=== PATIENT | female | born 2005 | race Caucasian/White ===

== ENCOUNTER 2024-05-01 19:06 | Emergency (ER) | payer MEDICAID, SELFPAY ==
[2024-05-01 19:11] VITALS: BP 132/89; PULSE 94; RESP 16; TEMP 36.4; O2SAT 100; BMI 19.8
[2024-05-01] MEDS: GI COCKTAIL (VISC LIDO/ANTACID) 30 ML PO (19:56)
--- NOTE | 2024-05-01 19:57 | ED.GENADULT ---
HPI - General Adult General Chief complaint: Abdominal Pain Stated complaint: abdominal pain Time Seen by Provider: 05/01/24 19:07 History of Present Illness HPI narrative: Patient is a pleasant 89-year-old female presents with her boyfriend. She has had some upper abdominal/epigastric pain for the last couple of hours. She has had this intermittently in the past. She gets some intermittent stomach cramping. She indicates the D and some other food and did not think others got sick from that. She has allergies and takes allergy medicine. She reports she is on control pills. She reports her last menstrual period was 2 weeks ago. She has had no fever, chills, dysuria frequency hematuria. No constipation or diarrhea. Related Data Allergies Allergy/AdvReac Type Severity Reaction Status Date / Time No Known Drug Allergies Allergy Verified 05/01/24 18:58 Review of Systems Status of ROS: Reports: 6 or more systems reviewed and unremarkable except as noted in History and below Exam Narrative: Exam Narrative: Objective: Vital signs are within normal limits Alert orient x3 no distress No scleral icterus abdomen is benign soft nontender no masses no peritonitis she denies flank pain Extremities good perfusion neurologic is grossly nonfocal she moving all extremities Const: Vital Signs, click to edit/add: Vital Signs - 24 hr 05/01/24 19:11 Temperature 97.5 F L Pulse Rate [Left P ulse Oximeter] 94 Respiratory Rate 16 Blood Pressure [Ri ght Upper Arm] 132/89 Pulse Oximetry 100 Oxygen Delivery Me thod Room Air Course Vital Signs Vital signs: Initial Vital Signs Temperature 97.5 F L 05/01/24 19:11 Temperature Source Temporal Artery Scan 05/01/24 19:11 Pulse Rate 94 05/01/24 19:11 Pulse Rhythm Regular 05/01/24 19:11 Respiratory Rate 16 05/01/24 19:11 Blood Pressure 132/89 05/01/24 19:11 Blood Pressure Mean 103 05/01/24 19:11 Blood Pressure Position Sitting 05/01/24 19:11 Pulse Oximetry 100 05/01/24 19:11 Oxygen Delivery Method Room Air 05/01/24 19:11 Vital Signs Temperature 97.5 F L 05/01/24 19:11 Pulse Rate 94 05/01/24 19:11 Respiratory Rate 16 05/01/24 19:11 Blood Pressure 132/89 05/01/24 19:11 Pulse Oximetry 100 05/01/24 19:11 Oxygen Delivery Method Room Air 05/01/24 19:11 Temperature 97.5 F L 05/01/24 19:11 Pulse Rate 94 05/01/24 19:11 Respiratory Rate 16 05/01/24 19:11 Blood Pressure 132/89 05/01/24 19:11 Pulse Oximetry 100 05/01/24 19:11 Oxygen Delivery Method Room Air 05/01/24 19:11 Medications Administered Medications: Generic Name Dose Route Start Last Admin Trade Name Freq PRN Reason Stop Dose Admin Lidocaine/Aluminum/Magnesium/Simeth 30 ml 05/01/24 19:53 05/01/24 19:56 Gi Cocktail (Visc Lido/Antacid) 30 Ml PO 05/01/24 19:54 30 ml ONCE ONE Administration Medical Decision Making MDM Narrative Medical decision making narrative: 18-year-old female with history of allergies, with a couple hour history of fullness and bloating crampy abdominal discomfort. Will check a test although she states she is on control pills, will check lab studies. Will give her a GI cocktail. If this is successful in her labs look reassuring I think we could try a proton pump inhibitor such as omeprazole for a couple of weeks and see if that would resolve this for her. Disposition pending findings on lab studies. Addendum 8:55 p.m. the patient does feel better after GI cocktail, her labs and test are negative. I would recommend she try members all for the next couple of weeks daily, she could also just use or Zyrtec as needed. Recommend follow up with regular doctor or a local clinic doctor if not improving or other concerns. She can return to the ED at any time. I do not believe she needs imaging at this time given her reassuring lab values and her benign exam. Lab Data Labs: Lab Results 05/01/24 Range/Units 20:04 WBC 9.11 (4.50-11.00) K/uL RBC 4.19 (4.00-5.20) m/uL Hgb 13.6 (12.0-16.0) gm/dL Hct 39.8 (33.0-51.0) % MCV 95 (80-100) fL MCH 33 (26-34) pg MCHC 34 (32-36) gm/dL RDW Coeff of Jolynn 11.7 (11.5-15.5) % Plt Count 283 (140-440) K/uL Neut % (Auto) 74.5 H (42.0-72.0) % Lymph % (Auto) 19.3 L (20-44) % [place] % (Auto) 4.9 (0.0-11.0) % Eos % (Auto) 0.9 (0.0-7.0) % Baso % (Auto) 0.3 (0.0-3.0) % Neut # (Auto) 6.80 (1.7-7.0) K/uL Lymph # (Auto) 1.80 (0.90-2.90) K/uL [place] # (Auto) 0.40 (0.00-0.90) K/UL Eos # (Auto) 0.08 (0.00-0.50) K/uL Baso # (Auto) 0.03 (0.00-0.30) K/uL Abs Immat Gran (auto) 0.01 (0.00-0.30) K/uL Imm/Tot Granulo (auto) 0.1 % Sodium 137 (135-149) mmol/L Potassium 3.5 L (3.6-5.1) mmol/L Chloride 104 (96-114) mmol/L Carbon Dioxide 23 (20-32) mmol/L Anion Gap 10 (7-15) mEq/L BUN 11 (5-24) mg/dL Creatinine 0.8 (0.6-1.2) mg/dL Estimated Creat Clear 105.29 Estimated GFR 109 ml/min Glucose 123 H (60-115) mg/dL Calcium 9.0 (8.7-10.8) mg/dL Total Bilirubin 0.3 (0.1-1.5) mg/dL Direct Bilirubin 0.1 (0.0-0.5) mg/dL AST 18 (12-35) U/L ALT 11 (4-35) U/L Alkaline Phosphatase 39 L (40-150) U/L C-Reactive Protein < 0.5 L (0.5-1.0) mg/dL Total Protein 7.0 (6.0-8.3) g/dL Albumin 4.3 (3.3-5.0) g/dL Amylase 91 H (18-89) U/L HCG, Quant < 2.39 mIU/mL Discharge Plan Discharge Clinical Impression: Acute epigastric pain Patient Disposition: Home, Self-Care Condition: Stable Additional Instructions: Prilosec or omeprazole daily for the next 2 weeks, you can continue your allergy medicineas needed. Recommend recheck with primary care if there is lack of improvement or other concerns. Return to ED as needed. Follow Up/Referrals: Provider,Not a Local [Primary Care Provider] - Stand Alone Forms: [employer] Info Instructions
[2024-05-01 20:10] LABS: Basophils Absolute Auto 0.03 K/uL (0.00-0.30); Basophils Percent Auto 0.3 % (0.0-3.0); Eosinophils Absolute Auto 0.08 K/uL (0.00-0.50); Eosinophils Percent Auto 0.9 % (0.0-7.0); Hematocrit 39.8 % (33.0-51.0); Hemoglobin* 13.6 gm/dL (12.0-16.0); Immature Granulocytes Abs Auto 0.01 K/uL (0.00-0.30); Immature Granulocytes Pct Auto 0.1 %; Lymphocytes Percent Auto 19.3 % (20-44); Mean Corpuscular HGB Conc 34 gm/dL (32-36); Mean Corpuscular Hemoglobin 33 pg (26-34); Mean Corpuscular Volume 95 fL (80-100); Monocytes Percent Auto 4.9 % (0.0-11.0); Neutrophils Percent Auto 74.5 % (42.0-72.0); Platelet Count* 283 K/uL (140-440); RDW Coefficient of Variation % 11.7 % (11.5-15.5); Red Blood Count 4.19 m/uL (4.00-5.20); White Blood Count* 9.11 K/uL (4.50-11.00)
[2024-05-01 20:25] LABS: Albumin* 4.3 g/dL (3.3-5.0); Chloride* 104 mmol/L (96-114); Potassium* 3.5 mmol/L (3.6-5.1); Sodium* 137 mmol/L (135-149)
[2024-05-01 20:27] LABS: Amylase* 91 U/L (18-89); Blood Urea Nitrogen* 11 mg/dL (5-24); Creatinine* 0.8 mg/dL (0.6-1.2); Est. Creatinine Clearance* 105.29; Estimated Glomerular Filt Rate 109 ml/min
[2024-05-01 20:28] LABS: Alkaline Phosphatase* 39 U/L (40-150); Anion Gap 10 mEq/L (7-15); Aspartate Amino Transferase* 18 U/L (12-35); Bilirubin Direct* 0.1 mg/dL (0.0-0.5); Bilirubin Total* 0.3 mg/dL (0.1-1.5); Carbon Dioxide* 23 mmol/L (20-32); Glucose* 123 mg/dL (60-115)
[2024-05-01 20:29] LABS: Alanine Aminotransferase* 11 U/L (4-35); Slide Review Reflex No
[2024-05-01 20:47] LABS: C Reactive Protein* < 0.5 mg/dL (0.5-1.0); HCG Quantitative* < 2.39 mIU/mL
== END 2024-05-01 21:07 | disposition home or self-care (01) ==
PROVIDERS: Emergency Provider Family Medicine
DX: R10.13 Epigastric pain (principal)
CPT/HCPCS: 36415; 80048; 80076; 82150; 84702; 85025; 86140; 99283; 99284; A9270